=== PATIENT | male | born 1950 | race Caucasian/White ===

== ENCOUNTER 2021-12-07 11:10 | Emergency (ER) | payer OTHER ==
[~2021-12-07] VITALS: Ht 175.3 cm; Wt 104.3 kg
[2021-12-07] MEDS ORDERED: TOPROL XL100 MG PO (11:26)
[2021-12-07] MEDS ORDERED: ALLOPURINOL 10100 M3 PO (11:26)
[2021-12-07] MEDS ORDERED: PRADAXA150 MG PO (11:26)
[2021-12-07] MEDS ORDERED: LIPITOR40 MG PO (11:27)
[2021-12-07 13:23] VITALS: BP 128/70
== END 2021-12-07 13:25 | disposition home or self-care (01) ==
LOC: ER 11:10
DX: S93.401A Sprain of unspecified ligament of right ankle, initial encounter (principal); F17.210 Nicotine dependence, cigarettes, uncomplicated; Z79.899 Other long term (current) drug therapy; X50.1XXA Overexertion from prolonged static or awkward postures, initial encounter; Y93.89 Activity, other specified; Y92.89 Other specified places as the place of occurrence of the external cause; Y99.8 Other external cause status